=== PATIENT | male | born 1985 | race Two or more races ===

== ENCOUNTER 2017-11-11 07:30 | Emergency (ER) | payer OTHER ==
[~2017-11-11] VITALS: Ht 175.3 cm; Wt 59.0 kg
[~2017-11-11 07:30] MED LIST: LORazepam Inj 2mg/ml 1ml IV ONE
--- NOTE | 2017-11-11 07:32 | Emergency Room Report ---
History of Present Illness General Source: Patient, EMS Present Illness HPI Patient presents with dyspnea. He was in a basement to work on a generator and smelled something burning. He started having shortness of breath at that time. He denies any chest pain. He was taking deep breaths feeling that he was out of breath. His hands and legs started to tingle. He was in the room for 15 seconds. Paramedics had clear lung sounds and O2 sat 100%. The patient denies any major medical problems. He does not smoke or drink alcohol. Denies any fevers, cough, sore throat, nausea vomiting diarrhea headache. He does feel some dizziness. Denies stress at this time. Allergies: Coded Allergies: No Known Allergies (Unverified , 11/11/17) Patient History Past Medical History: none Social History: Denies: smoking, alcohol use Social History Narrative works as electrician journeyman wireman Reviewed Nursing Documentation: PMH: Agreed; PSxH: Agreed Review of Systems All Other Systems: negative except mentioned in HPI Physical Exam Vital Signs Date Time Temp Pulse Resp B/P (MAP) Pulse Ox O2 Delivery O2 Flow Rate FiO2 11/11/17 07:26 97.2 80 20 132/88 100 Room Air 97.2 Sp02 EP Interpretation: reviewed, normal General Appearance: well appearing, no apparent distress, GCS 15, other - anxious Head: normocephalic Eyes: bilateral eye normal inspection, bilateral eye PERRL ENT: moist mucus membranes Neck: supple Respiratory: lungs clear, normal breath sounds Cardiovascular #1: regular rate, rhythm Cardiovascular #2: 2+ radial (R) Gastrointestinal: normal inspection, normal bowel sounds, non tender, no mass, non-distended, scaphoid Musculoskeletal: back normal, gait/station normal, normal range of motion Neurologic: alert, oriented x3, motor strength/tone normal, DTRs symmetric, sensory intact, speech normal Psychiatric: anxious Skin: normal inspection, warm/dry Medical Decision Making Diagnostic Impression: Primary Impression: Dyspnea Qualified Codes: R06.09 - Other forms of dyspnea Additional Impression: Hyperventilation ER Course Patient presents with dyspnea after exposure to smoke. Differential includes hyperventilation, cardiac cause, carbon monoxide poisoning, chemical exposure, allergic reaction amongst others. Evaluation will be with EKG, chest x-ray and labs including venous blood gas for CO. The patient was treated with a small dose of Ativan. EKG without injury. CXR normal. Labs CBC, CMP normal. CO reported as normal. Patient symptoms resolved with ativan and observation. Patient stable for outpatient observation and treatment. Laboratory Tests Test 11/11/17 07:40 11/11/17 07:46 Venous Blood pH Pending Venous Blood Partial Pressure CO2 Pending Venous Blood Partial Pressure O2 Pending Venous Blood HCO3 Pending Venous Blood Total Carbon Dioxide Pending Venous Bld O2 Saturation (Measured) Pending Venous Blood Oxygen Saturation Pending Venous Blood Base Excess Pending Methemoglobin 0.5 Sodium (Blood Gas) Pending White Blood Count 4.9 K/UL (4.8-10.8) Red Blood Count 5.94 M/UL (4.70-6.10) Hemoglobin 16.3 G/DL (14.2-18.0) Hematocrit 48.4 % (42.0-52.0) Mean Corpuscular Volume 82 FL (80-99) Mean Corpuscular Hemoglobin 27.5 PG (27.0-31.0) Mean Corpuscular Hemoglobin Concent 33.7 G/DL (32.0-36.0) Red Cell Distribution Width 11.5 % (11.6-14.8) L Platelet Count 277 K/UL (150-450) Mean Platelet Volume 7.3 FL (6.5-10.1) Neutrophils (%) (Auto) 58.8 % (45.0-75.0) Lymphocytes (%) (Auto) 33.8 % (20.0-45.0) Monocytes (%) (Auto) 4.3 % (1.0-10.0) Eosinophils (%) (Auto) 1.1 % (0.0-3.0) Basophils (%) (Auto) 1.9 % (0.0-2.0) Sodium Level 139 MMOL/L (136-145) Potassium Level 3.4 MMOL/L (3.5-5.1) L Chloride Level 101 MMOL/L (98-107) Carbon Dioxide Level 27 MMOL/L (21-32) Anion Gap 11 mmol/L (5-15) Blood Urea Nitrogen 11 mg/dL (7-18) Creatinine 1.0 MG/DL (0.55-1.30) Estimate Glomerular Filtration Rate > 60 mL/min (>60) Glucose Level 122 MG/DL (74-106) H Calcium Level 9.7 MG/DL (8.5-10.1) Total Bilirubin 0.4 MG/DL (0.2-1.0) Aspartate Amino Transferase (AST) 25 U/L (15-37) Alanine Aminotransferase (ALT) 24 U/L (12-78) Alkaline Phosphatase 47 U/L (46-116) Total Creatine Kinase 127 U/L (26-308) Troponin I 0.000 ng/mL (0.000-0.056) Total Protein 8.1 G/DL (6.4-8.2) Albumin 4.7 G/DL (3.4-5.0) Globulin 3.4 g/dL Albumin/Globulin Ratio 1.4 (1.0-2.7) EKG Diagnostic Results Rate: normal Rhythm: NSR ST Segments: no acute changes Rhythm Strip Diag. Results EP Interpretation: yes Rhythm: NSR, no PVC's, no ectopy Last Vital Signs Date Time Temp Pulse Resp B/P (MAP) Pulse Ox O2 Delivery O2 Flow Rate FiO2 11/11/17 10:04 97.2 72 20 119/65 100 Room Air Status: improved Disposition: HOME, SELF-CARE Condition: Improved Scripts No Active Prescriptions or Reported Meds Josue Donnelly M.D. Nov 11, 2017 07:32
[2017-11-11 07:35] VITALS: BP 132/88
[2017-11-11] MEDS ORDERED: LORazepam Inj 2mg/ml 1ml IV ONE (08:00)
[2017-11-11 08:06] LABS: BASOPHILS % (AUTO) 1.9 % (0.0-2.0); EOSINOPHILS % (AUTO) 1.1 % (0.0-3.0); HEMATOCRIT 48.4 % (42.0-52.0); HEMOGLOBIN 16.3 G/DL (14.2-18.0); LYMPHOCYTES % (AUTO) 33.8 % (20.0-45.0); MEAN CORPUSCULAR VOLUME 82 FL (80-99); MONOCYTES % (AUTO) 4.3 % (1.0-10.0); NEUTROPHILS % (AUTO) 58.8 % (45.0-75.0); PLATELET COUNT 277 K/UL (150-450); RED BLOOD COUNT 5.94 M/UL (4.70-6.10); RED CELL DISTRIBUTION WIDTH 11.5 % (11.6-14.8); WHITE BLOOD COUNT 4.9 K/UL (4.8-10.8)
[2017-11-11 08:20] LABS: ANION GAP 11 mmol/L (5-15); BLOOD UREA NITROGEN 11 mg/dL (7-18); CALCIUM 9.7 MG/DL (8.5-10.1); CARBON DIOXIDE 27 MMOL/L (21-32); CHLORIDE 101 MMOL/L (98-107); POTASSIUM 3.4 MMOL/L (3.5-5.1); SODIUM 139 MMOL/L (136-145)
[2017-11-11 08:25] LABS: ALANINE AMINOTRANSFERASE 24 U/L (12-78); ALBUMIN 4.7 G/DL (3.4-5.0); ALBUMIN/GLOBULIN RATIO 1.4 (1.0-2.7); ALKALINE PHOSPHATASE 47 U/L (46-116); ASPARTATE AMINO TRANSFERASE 25 U/L (15-37); BILIRUBIN,TOTAL 0.4 MG/DL (0.2-1.0); CREATINE KINASE 127 U/L (26-308)
[2017-11-11 09:03] VITALS: BP 119/74
[2017-11-11 10:04] VITALS: BP 119/65
--- NOTE | 2017-11-11 10:44 | Diagnostic Imaging Report ---
Indication: Reason For Exam: DYSPNEA Technique: One view of the chest Comparison: none Findings: Lungs and pleural spaces are clear. Heart size is normal Impression: No acute process
--- NOTE | 2017-11-12 17:32 | Cardiology Report ---
APPROVED REPORT EKG Measurement Heart [id number] Normal sinus rhythm ST elevation, probably due to early repolarization Borderline ECG
== END 2017-11-11 10:11 | disposition home or self-care (01) ==
LOC: EDBD 07:30 → EMR 09:38
DX: R06.00 Dyspnea, unspecified (principal); R06.4 Hyperventilation
CPT/HCPCS: 36415; 71045; 80053; 82550; 84484; 85025; 93005; 96374; 99284